=== PATIENT | male | born 1985 | race Asian ===

== ENCOUNTER 2019-01-02 19:17 | Emergency (ER) | payer OTHER ==
[~2019-01-02] VITALS: Ht 162.6 cm; Wt 59.0 kg
--- NOTE | 2019-01-02 19:17 | NUR ---
Nursing anode crew supervisor notified of a need for a sitter.None available at this time.
--- NOTE | 2019-01-02 19:19 | Emergency Room Report ---
History of Present Illness General Chief Complaint: Behavioral Complaint Source: Law Enforcement Present Illness HPI Disclaimer: Please note that this report is being documented using DRAGON technology. This can lead to erroneous entry secondary to incorrect interpretation by the dictating instrument. HPI: 33-year-old male with unknown medical history presents for evaluation in law enforcement custody on 5150 status for evaluation of bizarre behavior. Police were called to the patient's apartment building where they found him running around the lobby naked. He was scratching his chest though police were able to talk him down and he was reportedly cooperative. He has not been answering any questions or speaking in general. He has been awake the entire time according to police. No reported injury by bystanders aside from the scratching over the chest. Police did not find any weapons, medications or other paraphernalia either on his person or in his apartment. They noted tachycardia en route but otherwise stable vital signs. PMH: Unknown PSH: Unknown Allergies: Unknown Social Hx: Unknown Allergies: Coded Allergies: No Known Allergies (Unverified , 01/02/19) Patient History Limited by: medical condition Nursing Documentation-PMH Past Medical History: Deferred Review of Systems All Other Systems: limited - Patient is uncooperative Physical Exam Vital Signs Date Time Temp Pulse Resp B/P (MAP) Pulse Ox O2 Delivery O2 Flow Rate FiO2 01/02/19 19:02 98.1 101 16 124/78 (93) 98 Room Air General: Awake, no acute distress HEENT: NC/AT. There is an abrasion over the upper forehead just below the hairline. No hematoma. EOMI. PERRLA. Pupils are 4 mm and reactive. Moist mucous membranes. Neck: Supple, trachea midline Chest Wall: Multiple scratches over his chest Cardiovascular: Tachycardic. S1 and S2 normal. No murmur appreciated Resp: Normal work of breathing. No cough, wheezing or crackles appreciated Abdomen: Abdomen is soft, nondistended. Nontender Skin: Multiple scratches over the skin, superficial over the chest. Do not appear to have done with a blade MSK: Normal tone and bulk. Moving all extremities. No obvious deformity. Neuro: Awake, nonverbal, facial expressions are symmetrical. Medical Decision Making Restraint Attestation I, Saman James MD, have personally evaluated this patient. Laboratory tests have been reviewed and addressed accordingly. The patient is deemed to present a danger to themselves and/or others. This is based on the exam, history ( provided by patient, EMS/[employer] and/or family) and observed or reported behavior. Attempts for non-invasive measures have been considered and/or attempted, however, have been futile. It is in the best interest of the nursing staff, the patient, and others involved in this patient's care that behavioral restraints be applied. Patient evaluation reveals the following: Self-harm behavior Diagnostic Impression: Primary Impression: Behavioral change Additional Impressions: Acidosis Hypokalemia ER Course 33-year-old male with unknown medical history presents with altered mental status on 5150 status by police. He is apparently been behaving erratically being found wandering around naked his apartment building and scratching his chest. He is uncooperative with history though appears to be in no acute distress. We will start broad work-up including tox screen and CT of the head. Will require psychiatric evaluation Laboratory Tests Test 01/02/19 14:55 01/02/19 19:30 Urine Opiates Screen Negative (NEGATIVE) Urine Barbiturates Screen Negative (NEGATIVE) Phencyclidine (PCP) Screen Negative (NEGATIVE) Urine Amphetamines Screen Negative (NEGATIVE) Urine Benzodiazepines Screen Negative (NEGATIVE) Urine Cocaine Screen Negative (NEGATIVE) Urine Marijuana (THC) Screen Positive (NEGATIVE) H White Blood Count 17.3 K/UL (4.8-10.8) H Red Blood Count 5.11 M/UL (4.70-6.10) Hemoglobin 16.4 G/DL (14.2-18.0) Hematocrit 45.6 % (42.0-52.0) Mean Corpuscular Volume 89 FL (80-99) Mean Corpuscular Hemoglobin 32.0 PG (27.0-31.0) H Mean Corpuscular Hemoglobin Concent 35.9 G/DL (32.0-36.0) Red Cell Distribution Width 11.3 % (11.6-14.8) L Platelet Count 346 K/UL (150-450) Mean Platelet Volume 5.0 FL (6.5-10.1) L Neutrophils (%) (Auto) 79.9 % (45.0-75.0) H Lymphocytes (%) (Auto) 12.0 % (20.0-45.0) L Monocytes (%) (Auto) 6.9 % (1.0-10.0) Eosinophils (%) (Auto) 0.4 % (0.0-3.0) Basophils (%) (Auto) 0.9 % (0.0-2.0) Sodium Level 137 MMOL/L (136-145) Potassium Level 3.1 MMOL/L (3.5-5.1) L Chloride Level 100 MMOL/L (98-107) Carbon Dioxide Level 24 MMOL/L (21-32) Anion Gap 13 mmol/L (5-15) Blood Urea Nitrogen 6 mg/dL (7-18) L Creatinine 1.4 MG/DL (0.55-1.30) H Estimat Glomerular Filtration Rate 59.1 mL/min (>60) Glucose Level 114 MG/DL (74-106) H Lactic Acid Level 3.40 mmol/L (0.4-2.0) H Calcium Level 9.4 MG/DL (8.5-10.1) Total Bilirubin 1.2 MG/DL (0.2-1.0) H Direct Bilirubin 0.2 MG/DL (0.0-0.3) Aspartate Amino Transf (AST/SGOT) 25 U/L (15-37) Alanine Aminotransferase (ALT/SGPT) 12 U/L (12-78) Alkaline Phosphatase 66 U/L (46-116) Total Creatine Kinase 755 U/L (26-308) H Creatine Kinase MB 3.8 NG/ML (0.0-3.6) H Creatine Kinase MB Relative Index 0.5 Total Protein 7.7 G/DL (6.4-8.2) Albumin 4.3 G/DL (3.4-5.0) Globulin 3.4 g/dL Albumin/Globulin Ratio 1.3 (1.0-2.7) Salicylates Level 3.8 ug/mL (2.8-20) Acetaminophen Level < 2 MCG/ML (10-30) L Serum Alcohol < 3 mg/dL EKG Diagnostic Results EKG Time: 19:17 Rate: tachycardiac Rhythm: NSR ST Segments: no acute changes Other Impression T wave inversion in V3. No ST segment changes. Otherwise, sinus tachycardia, normal axis, normal intervals. Rhythm Strip Diag. Results Rhythm Strip Time: 19:17 EP Interpretation: yes Rate: 100s Rhythm: NSR CT/MRI/US Diagnostic Results CT/MRI/US Diagnostic Results : Impression Preliminary Findings Only See Final Report For Complete Findings CT HEAD Without Contrast: No intracranial hemorrhage or infarct. Prominent extra-axial space along the right frontal convexity measuring 3.7 x 1.3 x 2.0 cm, possibly an underlying arachnoid cyst. The paranasal sinuses and mastoid air cells are clear. Radiologist: Manuel Dukes MD Reevaluation Time: 21:10 Last Vital Signs Date Time Temp Pulse Resp B/P (MAP) Pulse Ox O2 Delivery O2 Flow Rate FiO2 01/02/19 19:02 98.1 101 16 124/78 (93) 98 Room Air Status: unchanged Reevaluation Impression Labs show an elevated white count of 17.3, hypokalemia at 3.1, slight SHARA at 1.4 creatinine, elevated lactate at 3.40 and an elevated creatinine kinase. This would all make sense in the setting of agitated delirium and dehydration. The patient is receiving IV fluids, potassium will be repleted. Tox screen positive for THC. CT scan of the head showed an arachnoid cyst but otherwise no evidence of traumatic injury. No evidence of subdural or subarachnoid bleed. His EKG showed inverted T wave in lead V3 but otherwise sinus tachycardia. There is a questionable biphasic T wave in V2 which could be concerning for Wellens or Brugada syndrome however the T wave is not deeply inverted and there is a questionable call on the biphasic nature of V2. Can repeat EKG after electrolytes are repleted and the patient is hydrated. Patient remains unchanged and is nearly catatonic. Once his electrolyte and metabolic derangements are corrected he will require psychiatric evaluation. He will be signed out to Dr. Vincent Signed Out To: Saman Hoskins MD Jan 02, 2019 19:19
[2019-01-02 19:40] VITALS: BP 124/78
--- NOTE | 2019-01-02 19:40 | NUR ---
ER Nurse Note: Pt BIBA RA 13 with [employer] d/t behavior complaint. Pt is mute and unable to obtain information. Per [employer] and [employer], pt was found running around naked with scratches on abdomen with unknown object; no active bleeding. Pt has redness on forehead. Pt follows commands, had 2 epi of sporadic jerking-like behavior. Unable to assess mental stats; pupils dilated but reactive to light bilaterally. Pt on 5150 hold; nurse at bedside d/t no sitter available. Belongings in [address]. All orders completed; awaiting results; will continue to [facility].
[2019-01-02] MEDS ORDERED: Tetanus/Diptheria/Pertussis IM ONE (19:45)
[2019-01-02 19:47] LABS: BASOPHILS % (AUTO) 0.9 % (0.0-2.0); EOSINOPHILS % (AUTO) 0.4 % (0.0-3.0); HEMATOCRIT 45.6 % (42.0-52.0); HEMOGLOBIN 16.4 G/DL (14.2-18.0); MEAN CORPUSCULAR VOLUME 89 FL (80-99); MONOCYTES % (AUTO) 6.9 % (1.0-10.0); NEUTROPHILS % (AUTO) 79.9 % (45.0-75.0); PLATELET COUNT 346 K/UL (150-450); RED BLOOD COUNT 5.11 M/UL (4.70-6.10); RED CELL DISTRIBUTION WIDTH 11.3 % (11.6-14.8); WHITE BLOOD COUNT 17.3 K/UL (4.8-10.8)
[2019-01-02 19:56] LABS: ANION GAP 13 mmol/L (5-15); BLOOD UREA NITROGEN 6 mg/dL (7-18); CALCIUM 9.4 MG/DL (8.5-10.1); CARBON DIOXIDE 24 MMOL/L (21-32); CHLORIDE 100 MMOL/L (98-107); CREATININE 1.4 MG/DL (0.55-1.30); POTASSIUM 3.1 MMOL/L (3.5-5.1); SODIUM 137 MMOL/L (136-145)
[2019-01-02 20:07] LABS: ALANINE AMINOTRANSFERASE 12 U/L (12-78); ALBUMIN 4.3 G/DL (3.4-5.0); ALBUMIN/GLOBULIN RATIO 1.3 (1.0-2.7); ALKALINE PHOSPHATASE 66 U/L (46-116); ASPARTATE AMINO TRANSFERASE 25 U/L (15-37); BILIRUBIN,TOTAL 1.2 MG/DL (0.2-1.0); CKMB 3.8 NG/ML (0.0-3.6); CREATINE KINASE 755 U/L (26-308)
[2019-01-02 20:42] LABS: BILIRUBIN,DIRECT 0.2 MG/DL (0.0-0.3)
--- NOTE | 2019-01-02 20:47 | NUR ---
ER Nurse Note: Pt back from CT; awaiting results. Pt crying, calm. VSS, stable. Will conitnue to teior.
--- NOTE | 2019-01-02 21:02 | Diagnostic Imaging Report ---
Indication: Altered level of consciousness Technique: Contiguous 5 mm thick transaxial imaging of the head obtained in a Siemens Sensation [address] scanner. Soft tissue and bone windows generated. Automatic Exposure Control was utilized. Total Dose length Product (DLP): 1453.[address] Dose Index Volume (CTDIvol): 70.38 mGy Comparison: none Findings: 3.5 x 1.3 cm CSF intensity extra-axial focus over the right frontal convexity noted. This is most likely an arachnoid cyst. The size and configuration of the cortical sulci, basal cisterns, and ventricles are within normal limits for age. There is no mass effect, midline shift, or edema identified. There is no evidence of acute hemorrhage or abnormal intra-axial collections. The bones and soft tissues are unremarkable. Impression: No mass effect, edema or acute bleed. 3.5 x 1.3 cm extra-axial CSF intensity focus most likely arachnoid cyst over the right frontal convexity. [facility] has communicated the preliminary results to the Emergency Department. Their findings are largely concordant with this report. The CT scanner at [facility] is accredited by the [employer] and the scans are performed using dose optimization techniques as appropriate to a performed exam including Automatic Exposure control.
[2019-01-02 21:29] VITALS: BP 128/80
--- NOTE | 2019-01-02 21:30 | NUR ---
ER Nurse Note: Pt muttering to himself, crying. Pt cooperative. Potassium infusing, tolerating well. Ever continue to mont[facility].
[2019-01-02 22:43] VITALS: BP 122/74
--- NOTE | 2019-01-02 22:43 | NUR ---
ER Nurse Note: Pt asleep, no signs of distress. All orders competed. Second bag of potassium infusing. All safety measures met; will conitnue to le.
--- NOTE | 2019-01-02 22:46 | NUR ---
Spoke with Donal at [facility]-will have Arnaud FENTON to call back to speak with .
[2019-01-02 23:50] LABS: BASOPHILS % (AUTO) 0.5 % (0.0-2.0); EOSINOPHILS % (AUTO) 0.8 % (0.0-3.0); HEMATOCRIT 41.2 % (42.0-52.0); HEMOGLOBIN 14.7 G/DL (14.2-18.0); LYMPHOCYTES % (AUTO) 17.4 % (20.0-45.0); MEAN CORPUSCULAR VOLUME 92 FL (80-99); MONOCYTES % (AUTO) 6.3 % (1.0-10.0); PLATELET COUNT 282 K/UL (150-450); RED BLOOD COUNT 4.49 M/UL (4.70-6.10); RED CELL DISTRIBUTION WIDTH 11.4 % (11.6-14.8); WHITE BLOOD COUNT 12.5 K/UL (4.8-10.8)
--- NOTE | 2019-01-03 | NUR ---
ER Nurse Note: Spoke and gave report with Francisca from [facility]. interventional techSherif amaro, faxed paperwork to Francisca. Pt calm, cooperative, VSS, no signs of distress. Labs sent and pending results. All safety measures met; will continue to monitor.
[2019-01-03 00:14] LABS: CREATINE KINASE 724 U/L (26-308)
[2019-01-03 00:48] VITALS: BP 100/70
--- NOTE | 2019-01-03 00:48 | NUR ---
ER Nurse Note: Pt follow commands; pt talks to himself and cries. Takes PO meds. Pt does not try to get out of bed; depressed behavior. Pt does not talk to nurse and staff. Pupils dilated at 5cm. pupils equal and reactive to light. All safety measures met; will continue to [facility].
--- NOTE | 2019-01-03 02:13 | NUR ---
ER Nurse Note: Pt ambulatory, able to walk with steady gait. No difficulty voiding. Pt VSS, no signs of distress. Pt sitting in bed. All safety measures met; will continue to [facility].
[2019-01-03 02:17] VITALS: BP 112/78
--- NOTE | 2019-01-03 03:52 | NUR ---
Spoke with Dell EPRP-transferred to behavioral and bed assignement, spoke with Lucrecia Schmitt-case being reviewed at this time and Dell will call us shortly for nurse to nurse report.
[2019-01-03 04:54] VITALS: BP 120/74
--- NOTE | 2019-01-03 04:55 | NUR ---
ER Nurse Note: Pt calm, cooperative. Pt does not show combative behvaior, follow commands, denies self harm. Pt sitting in bed. All orders completed; labs within range. Pending call from [place] for possible placement. All safety measures met; will continue to monitor.
--- NOTE | 2019-01-03 05:17 | NUR ---
ER Nurse Note: Spoke with Shakira in [place]; provided her information about pt. Per Shakira's request, accu check done, repeat glucose level at 91. Shakira stated she will call back for pending admission.
[2019-01-03 06:09] VITALS: BP 110/72
--- NOTE | 2019-01-03 06:32 | NUR ---
ER Nurse Note: Pt calm, no signs of distress. Pt clean, food and drink offered, pt refused. Report given to [facility] for continuity of care. Awaiting transportation; ETA 0624. All safety measures met; [facility]
[2019-01-03 07:07] VITALS: BP 110/72
--- NOTE | 2019-01-03 07:07 | NUR ---
ER Nurse Note: Pt departed from [facility] [place] [facility]. Left with all belongings; pt stable, no signs of distress.
--- NOTE | 2019-01-03 12:13 | Cardiology Report ---
APPROVED REPORT EKG Measurement Heart [id number] Sinus tachycardia T wave abnormality, consider anterior ischemia Abnormal ECG
== END 2019-01-03 07:07 ==
LOC: EDBD 19:17 → EMR 22:09
DX: F91.9 Conduct disorder, unspecified (principal); E87.2 Acidosis; E87.6 Hypokalemia; G93.0 Cerebral cysts; F12.10 Cannabis abuse, uncomplicated; Z23 Encounter for immunization
CPT/HCPCS: 36415; 70450; 80053; 80307; 82248; 82550; 82553; 82962; 83605; 84132; 85025; 90471; 90715; 93005; 96365; 96366; 99285; G0480; J3480; 80329; J8499